=== PATIENT | female | born 1995 | race Caucasian/White ===

== ENCOUNTER 2020-04-04 15:26 | Inpatient (IN) | payer OTHER ==
[2020-04-04 18:15] VITALS: BMI 22.3
--- NOTE | 2020-04-04 19:34 | HP ---
COWS - Scale Resting Pulse: 0= [place] 80 or Below Sweatin=Flushed/Facial Moisture Restless Observation: 1= Difficult to Sit Still Pupil Size: 0= Normal to Room Light Bone or Joint Aches: 4=Acute Joint/Muscle Pain Runny Nose/ Eye Tearin= None GI Upset > 30mins: 2= Nausea/Diarrhea (diarrhea x 3) Tremor Observation: 2= Slight Tremor Visible Yawning Observation: 0= None Anxiety or Irritability: 4=Extreme Anxiety Goose Flesh Skin: 0=Smooth Skin COWS Score: 15 CIWA Score - Admission Criteria [facility] Guidelines: Admission for Medically Managed Detox: Requires at least one of the followin. CIWA greater than 12 2. Seizures within the past 24 hours 3. Delirium tremens within the past 24 hours 4. Hallucinations within the past 24 hours 5. Acute intervention needed for co occurring medical disorder 6. Acute intervention needed for co occurring psychiatric disorder 7. Severe withdrawal that cannot be handled at a lower level of care (continued vomiting, continued diarrhea, abnormal vital signs) requiring intravenous medication and/or fluids 8. Admission ROS [facility] Chief Complaint: Heroin withdrawal symptoms Allergies/Adverse Reactions: Allergies Allergy/AdvReac Type Severity Reaction Status Date / Time No Known Allergies Allergy Verified 04/04/20 19:03 History of Present Illness: 24 years old female with 1 year of heroin dependence is seeking admission to detox. This is her first admission to [facility]. He uses 10 bags of heroin daily. Exam Limitations: No Limitations - Ebola screening Have you traveled outside of the country in the last 21 days: No Have you had contact with anyone from an Ebola affected area: No Have you been sick,other than usual withdrawal symptoms: No Do you have a fever: No - Review of Systems Constitutional: Chills, Malaise, Night Sweats, Changes in sleep EENT: reports: No Symptoms Reported Respiratory: reports: No Symptoms reported Cardiac: reports: No Symptoms Reported GI: reports: Diarrhea, Nausea, Poor Appetite, Abdominal cramping : reports: No Symptoms Reported Musculoskeletal: reports: Back Pain Integumentary: reports: Dryness, Flushing Neuro: reports: Headache, Tremors Endocrine: reports: No Symptoms Reported Hematology: reports: No Symptoms Reported Psychiatric: reports: Agitated, Anxious Other Systems: Reviewed and Negative Patient History - Patient Medical History Hx Anemia: No Hx Asthma: No Hx Chronic Obstructive Pulmonary Disease (COPD): No Hx Cancer: No Hx Cardiac Disorders: No Hx Congestive Heart Failure: No Hx Hypertension: No Hx Hypercholesterolemia: No Hx Pacemaker: No HX Cerebrovascular Accident: No Hx Seizures: No Hx Diabetes: No Hx Gastrointestinal Disorders: No Hx Liver Disease: No Hx Genitourinary Disorders: No Hx Sexually Transmitted Disorders: No Hx Renal Disease (ESRD): No Hx Thyroid Disease: No Hx Human Immunodeficiency Virus (HIV): No (Negative 2019) Hx Hepatitis C: No Hx Depression: Yes Hx Suicide Attempt: No (Denies suicidal ideation at this time) Hx Bipolar Disorder: Yes Hx Schizophrenia: Yes Other Medical History: PSY HX: OCD, PTSD, Paranoia, Insomnia - Patient Surgical History Past Surgical History: No - PPD History Previous Implant?: Yes Documented Results: Negative w/o proof Implanted On Prior [facility] Admission?: No PPD to be Administered?: Yes - Reproductive History Patient is a Female of Child Bearing Age (11 -55 yrs old): Yes Last Menstrual Period: 02/28/20 - Smoking Cessation Smoking history: Current every day smoker Have you smoked in the past 12 months: Yes Aproximately how many cigarettes per day: 10 Hx Chewing Tobacco Use: No Initiated information on smoking cessation: Yes 'Breaking Loose' booklet given: 04/04/20 - Substance & Tx. History Hx Alcohol Use: No Hx Substance Use: Yes Substance Use Type: Heroin Hx Substance Use Treatment: No - Substances abused Heroin Substance route: Inhalation Frequency: Daily Amount used: 10 bags Age of first use: 23 Date of last use: 04/04/20 Admission Physical Exam BHS - Vital Signs Vital Signs: Vital Signs - 24 hr 04/04/20 18:13 Temperature 97.7 F Pulse Rate 75 Respiratory 18 Rate Blood Pressure 97/62 - Physical General Appearance: Yes: Moderate Distress, Tremorous, Irritable, Anxious HEENTM: Yes: Within Normal Limits Respiratory: Yes: Lungs Clear, Normal Breath Sounds, No Respiratory Distress Neck: Yes: Within Normal Limits Breast: Yes: Breast Exam Deferred Cardiology: Yes: Regular Rhythm, Regular Rate Abdominal: Yes: Normal Bowel Sounds, Soft Genitourinary: Yes: Within Normal Limits Back: Yes: Normal Inspection Musculoskeletal: Yes: Back pain, Muscle Pain, Other (bilateral leg pain) Extremities: Yes: Tremors Neurological: Yes: Within Normal Limits Integumentary: Yes: Within Normal Limits Lymphatic: Yes: Within Normal Limits - Diagnostic (1) Opioid dependence with withdrawal Current Visit: Yes Status: Acute (2) Nicotine dependence Current Visit: Yes Status: Chronic Qualifiers: Nicotine product type: cigarettes Substance use status: uncomplicated Qualified Code(s): F17.210 - Nicotine dependence, cigarettes, uncomplicated (3) Depression Current Visit: Yes Status: Chronic Qualifiers: Depression Type: unspecified Qualified Code(s): F32.9 - Major depressive disorder, single episode, unspecified (4) Bipolar 1 disorder Current Visit: Yes Status: Chronic (5) OCD (obsessive compulsive disorder) Current Visit: Yes Status: Chronic Qualifiers: Obsessive-compulsive disorder type: unspecified Qualified Code(s): F42.9 - Obsessive-compulsive disorder, unspecified (6) PTSD (post-traumatic stress disorder) Current Visit: Yes Status: Chronic (7) Insomnia Current Visit: Yes Status: Acute Qualifiers: Insomnia type: unspecified Qualified Code(s): G47.00 - Insomnia, unspecified (8) Paranoia Current Visit: Yes Status: Chronic Cleared for Admission [facility] - Detox or Rehab [facility] Level of Care: Medically Managed Detox Regimen/Protocol: Methadone Claeared for Rehab Admission: No Breathalyzer - Breathalyzer Breathalyzer: 0 Urine Drug Screen - Test Device Lot number: [id number] Expiration date: 02/12/22 - Control Is test valid?: Yes - Results Drug screen NEGATIVE: No Urine drug screen results: MOP-Opiates, MTD-Methadone, BZO-Benzodiazepines Inpatient Rehab Admission - Rehab Decision to Admit Inpatient rehab admission?: No
[2020-04-04] MEDS ORDERED: MAGNESIUM CITRATE 300 ML BOTTLE PO PRN (19:50)
[2020-04-04] MEDS ORDERED: ACETAMINOPHEN 325 MG TABLET (FP) PO PRN ×2 (19:50)
[2020-04-04] MEDS ORDERED: BISMUTH SUBSALICYLATE 524 MG/30 ML UD PO PRN (19:50)
[2020-04-04] MEDS ORDERED: cloNIDine HCL 0.1 MG TABLET PO PRN (19:50)
[2020-04-04] MEDS ORDERED: NICOTINE POLACRILEX 2 MG GUM BUC PRN (19:50)
[2020-04-04] MEDS ORDERED: MAGNESIUM HYDROX 2400MG/30ML ORAL SUSPENSION 30 ML CUP PO PRN (19:50)
[2020-04-04] MEDS ORDERED: MAG HYDROX/AL HYDROX/SIMETH 30 ML UNIT-DOSE CUP PO PRN (19:50)
[2020-04-04] MEDS ORDERED: MENTHOL/PHENOL 1 EACH UD MM PRN (19:50)
[2020-04-04] MEDS ORDERED: ONDANSETRON *ODT* 4 MG TABLET SL PRN (19:50)
[2020-04-04] MEDS ORDERED: METHADONE HCL 10 MG TABLET (FOR DETOX USE ONLY) PO ONE (20:30)
[2020-04-04] MEDS ORDERED: TUBERCULIN PPD 5 TU/0.1ML VIAL ID ONE (20:56)
[2020-04-04] MEDS: THIAMINE HCL 100 MG TABLET (FP) PO SCH (22:53)
[2020-04-04] MEDS: MELATONIN 5 MG TABLETS PO SCH (22:53)
[2020-04-05] MEDS: IBUPROFEN 400 MG TABLET (FP) PO PRN (05:45)
[2020-04-05] MEDS: hydrOXYzine PAMOATE 25 MG CAPSULE (FP) PO PRN ×3 (05:46→22:08)
[2020-04-05] MEDS ORDERED: METHADONE HCL 10 MG TABLET (FOR DETOX USE ONLY) ONE (09:03)
[2020-04-05] MEDS ORDERED: METHADONE HCL 5 MG TABLET (FOR DETOX USE ONLY) ONE (09:04)
--- NOTE | 2020-04-05 09:12 | PN ---
BHS COWS - Scale Resting Pulse: 0= [place] 80 or Below Sweatin= No chills or Flushing Restless Observation: 0= Sits Still Pupil Size: 1= Pupils >than Normal Bone or Joint Aches: 2= Severe Diffuse Aches Runny Nose/ Eye Tearin= Nasal Congestion GI Upset > 30mins: 2= Nausea/Diarrhea Tremor Observation of Outstretched Hands: 2= Slight Tremor Visible Yawning Observation: 1= 1-2x During Session Anxiety or Irritability: 2=Irritable/Anxious Goose Flesh Skin: 0=Smooth Skin COWS Score: 11 [facility] Progress Note (SOAP) Subjective: alert,irritable,anxious,aching pain,interrupted sleep Objective: 04/05/20 17:34 t97.1,p71,r18,bp 102/71,pulse ox 97% Assessment: 04/05/20 17:35 withdrawal symptom Plan: continue detox methadone regimen
[2020-04-05] MEDS ORDERED: METHADONE (DETOX) 20 MG, METHADONE (DETOX) 5 MG PO ONE (10:00)
[2020-04-05] MEDS: NICOTINE 14 MG/24 HOURS TOPICAL PATCH TD SCH (10:06)
[2020-04-05] MEDS: PRENATAL VITAMINS W/ FOLIC ACID TABLET (FP) PO SCH (10:08)
[2020-04-05 10:14] LABS: HEMOGLOBIN 11.7 GM/dL (10.7-15.3); MCH 28.6 pg (25.7-33.7); MCHC 33.5 g/dl (32.0-36.0); MEAN CELL VOLUME 85.1 fl (80-96); MEAN PLT VOLUME 8.4 fl (7.5-11.1); PLATELET COUNT 194 K/MM3 (134-434); RBC 4.11 M/mm3 (3.60-5.2); RDW 13.5 % (11.6-15.6); WHITE BLOOD COUNT 5.3 K/mm3 (4.0-10.0)
[2020-04-05 10:15] LABS: ALBUMIN 3.3 g/dl (3.4-5.0); BILIRUBIN,TOTAL 0.8 mg/dL (0.2-1); BLOOD UREA NITROGEN 8.5 mg/dL (7-18); CALCIUM 8.6 mg/dL (8.5-10.1); CREATININE 0.6 mg/dL (0.55-1.3); POTASSIUM 3.6 mmol/L (3.5-5.1)
--- NOTE | 2020-04-05 10:31 | EKG ---
Test Reason : Blood Pressure : / mmHG Vent. Rate : 061 BPM Atrial Rate : 061 BPM P-R Int : 146 ms QRS Dur : 086 ms QT Int : 410 ms P-R-T Axes : 055 069 054 degrees QTc Int : 412 ms NORMAL SINUS RHYTHM WITH SINUS ARRHYTHMIA NORMAL ECG NO PREVIOUS ECGS AVAILABLE Confirmed by LORETA WALDRON MD ([id number]) on 04/05/2020 10:30:48 AM Referred By: Confirmed By:LORETA WALDRON MD
--- NOTE | 2020-04-05 11:53 | CONSULT ---
[facility] Psychiatric Consult - Data Date of interview: 04/05/20 Admission source: [facility] Identifying data: First visit to [facility] and admission to [address] [place] [address] for this 24 y/o female self-referred for detoxification treatment. VANESSA issues : heroin, benzodiazepine (xanax), nicotine. Patient is single, mother of one, homeless (lives in [facility]), unemployed and supported on food stamps. Substance Abuse History: Discussed with the patient. VANESSA profile as follows : Smoking history: Current every day smoker. Have you smoked in the past 12 months: Yes. Approximately how many cigarettes per day: 10. Hx Chewing Tobacco Use: No. Initiated information on smoking cessation: Yes. 'Breaking Loose' booklet given: 04/04/20. - Substance & Tx. History. Hx Alcohol Use: No. Hx Substance Use: Yes. Substance Use Type: Heroin. Hx Substance Use Treatment: No. - Substances abused. Heroin. Substance route: Inhalation. Frequency: Daily. Amount used: 10 bags. Age of first use: 23. Date of last use: 04/04/20. History of multiple VANESSA treatment failures. Medical History: Patient endorses good general health. Psychiatric History: Patient is a marginally cooperative and irritable historian. Ms Clemens endorses a long standing (since age 12) history of contacts with mental health providers on an outpatient basis. No reported history of psychiatric hospitalizations. Patient states that she has been diagnosed with OCD, bipolar disorder, anxiety disorder and PTSD. Has not taken prescribed psychotropic medications for years (self-report). No contact with psychiatric OPD care providers. Patient has no recollection of the names of her past medications. She denies history of suicide attempts. Physical/Sexual Abuse/Trauma History: Patient declines to provide information. Additional Comment: Urine drug screen results: MOP-Opiates, MTD-Methadone, BZO- Benzodiazepines. Noted. Mental Status Exam - Mental Status Exam Alert and Oriented to: Time, Place, Person Cognitive Function: Good Patient Appearance: Unkempt, Disheveled (tattoos all over face : diabla painted over right eyebrow + teardrop at the corner of right eye + three x seen under the left eye + multiple figures drawn on upper extremities) Mood: Nervous, Withdrawn, Irritable Affect: Mood Congruent, Constricted Patient Behavior: Fatigued, Guarded Speech Pattern: Clear, Appropriate Voice Loudness: Normal Thought Process: Intact, Goal Oriented Thought Disorder: Not Present Hallucinations: Denies Suicidal Ideation: Denies Homicidal Ideation: Denies Insight/Judgement: Poor Sleep: Fair Appetite: Good Gait/Station: Other (not observed out of bed) Psychiatric Findings - Problem List ([place] 1, 2,3) (1) Opioid dependence with withdrawal Current Visit: Yes Status: Acute (2) Nicotine dependence Current Visit: Yes Status: Chronic Qualifiers: Nicotine product type: cigarettes Substance use status: uncomplicated Qualified Code(s): F17.210 - Nicotine dependence, cigarettes, uncomplicated (3) Substance induced mood disorder Current Visit: Yes Status: Chronic (4) Insomnia Current Visit: Yes Status: Chronic Qualifiers: Insomnia type: unspecified Qualified Code(s): G47.00 - Insomnia, unspecified - Initial Treatment Plan Initial Treatment Plan: Psychoeducation. Sleep hygiene. Support. MAT interventions (opioid agonist therapy) discussed with the patient. Detoxification in progress. Ms Clemens declines to consent for any medication other than drugs necessary for detoxification purposes. Observation.
[2020-04-05] MEDS: METHOCARBAMOL 500 MG TABLET PO PRN (17:31)
[2020-04-05] MEDS: MELATONIN 5 MG TABLETS PO SCH (22:08)
[2020-04-05] MEDS: THIAMINE HCL 100 MG TABLET (FP) PO SCH (22:08)
[2020-04-06] MEDS ORDERED: METHADONE HCL 10 MG TABLET (FOR DETOX USE ONLY) PO ONE (10:00)
[2020-04-06] MEDS: PRENATAL VITAMINS W/ FOLIC ACID TABLET (FP) PO SCH (10:24)
[2020-04-06] MEDS: NICOTINE 14 MG/24 HOURS TOPICAL PATCH TD SCH (10:24)
[2020-04-06] MEDS: METHOCARBAMOL 500 MG TABLET PO PRN (10:25)
--- NOTE | 2020-04-06 12:36 | PN ---
BHS COWS - Scale Resting Pulse: 0= [place] 80 or Below Sweatin= Chills/Flushing Restless Observation: 1= Difficult to Sit Still Pupil Size: 0= Normal to Room Light Bone or Joint Aches: 2= Severe Diffuse Aches Runny Nose/ Eye Tearin= None GI Upset > 30mins: 0= None Tremor Observation of Outstretched Hands: 0= None Yawning Observation: 2= >3x During Session Anxiety or Irritability: 2=Irritable/Anxious Goose Flesh Skin: 0=Smooth Skin COWS Score: 8 [facility] Progress Note (SOAP) Subjective: c/o anxiety, irritability, headache, and muscle aches. Objective: 04/06/20 12:35 Vital Signs 04/06/20 04/06/20 06:45 08:34 Temperature 97.1 F L 97.1 F L Pulse Rate 62 65 Respiratory 16 16 Rate Blood Pressure 101/60 108/79 O2 Sat by Pulse 99 Oximetry (%) Assessment: 04/06/20 12:37 AOX3, in no acute respiratory distress. Full ROM, ambulating in the unit. Withdrawal symptoms. Plan: continue detox.
[2020-04-06] MEDS: hydrOXYzine PAMOATE 25 MG CAPSULE (FP) PO PRN (17:59)
[2020-04-06] MEDS: THIAMINE HCL 100 MG TABLET (FP) PO SCH (22:42)
[2020-04-06] MEDS: MELATONIN 5 MG TABLETS PO SCH (22:42)
[2020-04-07] MEDS: hydrOXYzine PAMOATE 25 MG CAPSULE (FP) PO PRN ×2 (07:07→14:59)
[2020-04-07] MEDS: METHOCARBAMOL 500 MG TABLET PO PRN ×2 (07:08→14:59)
[2020-04-07] MEDS ORDERED: METHADONE HCL 10 MG TABLET (FOR DETOX USE ONLY) ONE (09:13)
[2020-04-07] MEDS ORDERED: METHADONE HCL 5 MG TABLET (FOR DETOX USE ONLY) ONE (09:14)
[2020-04-07] MEDS: IBUPROFEN 400 MG TABLET (FP) PO PRN (09:43)
[2020-04-07] MEDS: PRENATAL VITAMINS W/ FOLIC ACID TABLET (FP) PO SCH (09:44)
[2020-04-07] MEDS: NICOTINE 14 MG/24 HOURS TOPICAL PATCH TD SCH (09:44)
[2020-04-07] MEDS ORDERED: METHADONE (DETOX) 10 MG, METHADONE (DETOX) 5 MG PO ONE (10:00)
--- NOTE | 2020-04-07 10:13 | PN ---
BHS COWS - Scale Resting Pulse: 0= [place] 80 or Below Sweatin= No chills or Flushing Restless Observation: 0= Sits Still Pupil Size: 1= Pupils >than Normal Bone or Joint Aches: 1= Mild Discomfort Runny Nose/ Eye Tearin= Nasal Congestion GI Upset > 30mins: 1= Stomach Cramp Tremor Observation of Outstretched Hands: 1= Tremor [place], Not Seen Yawning Observation: 0= None Anxiety or Irritability: 1=Feels Anxious/Irritable Goose Flesh Skin: 0=Smooth Skin COWS Score: 6 [facility] Progress Note (SOAP) Subjective: 24 years old female was admitted on 04/04/20 for opiate withdrawal sx management treating with methadone detox regiment right jugalodigastric enlarged inflamed tenderness speech clearly "happened two years ago" lymphadenitis amoxicillin 500mg po tid x 5 days Objective: 04/07/20 10:15 Vital Signs - 24 hr 04/06/20 04/06/20 04/06/20 12:32 16:43 20:53 Temperature 97.3 F L 97.6 F 97.3 F L Pulse Rate 64 88 72 Respiratory 18 20 18 Rate Blood Pressure 99/69 107/74 101/67 O2 Sat by Pulse 100 100 Oximetry (%) 04/07/20 04/07/20 07:02 09:33 Temperature 97.8 F 97.3 F L Pulse Rate 88 75 Respiratory 18 18 Rate Blood Pressure 94/64 106/59 L O2 Sat by Pulse 98 Oximetry (%) Laboratory Tests 04/04/20 04/05/20 04/05/20 18:25 00:05 08:00 WBC RBC Hgb Hct MCV MCH MCHC RDW Plt Count MPV Sodium Potassium Chloride Carbon Dioxide Anion Gap BUN Creatinine Est GFR (CKD-EPI)AfAm Est GFR (CKD-EPI)NonAf Random Glucose Calcium Total Bilirubin AST ALT Alkaline Phosphatase Total Protein Albumin POC Urine HCG, Qual Negative Syphilis Serology Reactive A* RPR Titer COVID-19 (PATRICIA) Not detected 04/05/20 04/05/20 04/05/20 08:00 08:00 08:00 WBC 5.3 RBC 4.11 Hgb 11.7 Hct 35.0 MCV 85.1 MCH 28.6 MCHC 33.5 RDW 13.5 Plt Count 194 MPV 8.4 Sodium 138 Potassium 3.6 Chloride 104 Carbon Dioxide 28 Anion Gap 7 L BUN 8.5 Creatinine 0.6 Est GFR (CKD-EPI)AfAm 148.90 Est GFR (CKD-EPI)NonAf 128.48 Random Glucose 67 L Calcium 8.6 Total Bilirubin 0.8 AST 9 L ALT 11 L Alkaline Phosphatase 87 Total Protein 6.0 L Albumin 3.3 L POC Urine HCG, Qual Syphilis Serology RPR Titer Reactive 1:1 H COVID-19 (PATRICIA) 04/07/20 10:16 history of syphilis treated Assessment: 04/07/20 10:16 opiate withdrawal 04/07/20 10:17 lymphdenitis Plan: methadone regiment amoxicillin 500 mg po tid x 5 days
[2020-04-07] MEDS: AMOXICILLIN 500 MG CAPSULE (FP) PO SCH ×2 (13:32→21:26)
[2020-04-07] MEDS: THIAMINE HCL 100 MG TABLET (FP) PO SCH (21:26)
[2020-04-07] MEDS: MELATONIN 5 MG TABLETS PO SCH (21:26)
[2020-04-08] MEDS: hydrOXYzine PAMOATE 25 MG CAPSULE (FP) PO PRN ×3 (05:50→18:13)
[2020-04-08] MEDS: METHOCARBAMOL 500 MG TABLET PO PRN ×2 (05:50→18:13)
[2020-04-08] MEDS: AMOXICILLIN 500 MG CAPSULE (FP) PO SCH ×3 (05:50→22:30)
[2020-04-08] MEDS: NICOTINE 14 MG/24 HOURS TOPICAL PATCH TD SCH (09:51)
[2020-04-08] MEDS: PRENATAL VITAMINS W/ FOLIC ACID TABLET (FP) PO SCH (09:51)
[2020-04-08] MEDS ORDERED: METHADONE HCL 10 MG TABLET (FOR DETOX USE ONLY) PO ONE (10:00)
--- NOTE | 2020-04-08 15:04 | PN ---
BHS COWS - Scale Resting Pulse: 0= [place] 80 or Below Sweatin= No chills or Flushing Restless Observation: 0= Sits Still Pupil Size: 0= Normal to Room Light Bone or Joint Aches: 1= Mild Discomfort Runny Nose/ Eye Tearin= None GI Upset > 30mins: 1= Stomach Cramp Tremor Observation of Outstretched Hands: 1= Tremor [place], Not Seen Yawning Observation: 0= None Anxiety or Irritability: 1=Feels Anxious/Irritable Goose Flesh Skin: 0=Smooth Skin COWS Score: 4 [facility] Progress Note (SOAP) Subjective: 24 years old female was admitted on 04/04/20 for opiate withdrawal sx management treating with methadone detox regiment feels ok today less general body aches encourage to pear picker narcan from pharmacy upon discharge ate breakfast and lunch in room tolerated ensure well Objective: 04/08/20 15:06 Vital Signs - 24 hr 04/07/20 04/07/20 04/08/20 16:38 21:00 06:24 Temperature 97.5 F L 97.7 F 96.8 F L Pulse Rate 62 98 H 75 Respiratory 18 18 18 Rate Blood Pressure 109/74 108/72 119/69 O2 Sat by Pulse 100 95 96 Oximetry (%) 04/08/20 04/08/20 09:11 13:34 Temperature 97.5 F L 97.8 F Pulse Rate 75 69 Respiratory 18 16 Rate Blood Pressure 114/67 108/63 O2 Sat by Pulse Oximetry (%) Laboratory Tests 04/04/20 04/05/20 04/05/20 18:25 00:05 08:00 WBC RBC Hgb Hct MCV MCH MCHC RDW Plt Count MPV Sodium Potassium Chloride Carbon Dioxide Anion Gap BUN Creatinine Est GFR (CKD-EPI)AfAm Est GFR (CKD-EPI)NonAf Random Glucose Calcium Total Bilirubin AST ALT Alkaline Phosphatase Total Protein Albumin POC Urine HCG, Qual Negative Syphilis Serology Reactive A* RPR Titer COVID-19 (PATRICIA) Not detected 04/05/20 04/05/20 04/05/20 08:00 08:00 08:00 WBC 5.3 RBC 4.11 Hgb 11.7 Hct 35.0 MCV 85.1 MCH 28.6 MCHC 33.5 RDW 13.5 Plt Count 194 MPV 8.4 Sodium 138 Potassium 3.6 Chloride 104 Carbon Dioxide 28 Anion Gap 7 L BUN 8.5 Creatinine 0.6 Est GFR (CKD-EPI)AfAm 148.90 Est GFR (CKD-EPI)NonAf 128.48 Random Glucose 67 L Calcium 8.6 Total Bilirubin 0.8 AST 9 L ALT 11 L Alkaline Phosphatase 87 Total Protein 6.0 L Albumin 3.3 L POC Urine HCG, Qual Syphilis Serology RPR Titer Reactive 1:1 H COVID-19 (PATRICIA) lab noted syphilis contacted treated Assessment: 04/08/20 15:07 opiate withdrawal Plan: methadone regiment
[2020-04-08] MEDS: MELATONIN 5 MG TABLETS PO SCH (22:30)
[2020-04-08] MEDS: THIAMINE HCL 100 MG TABLET (FP) PO SCH (22:30)
[2020-04-09] MEDS: AMOXICILLIN 500 MG CAPSULE (FP) PO SCH (05:58)
[2020-04-09] MEDS ORDERED: METHADONE HCL 5 MG TABLET (FOR DETOX USE ONLY) PO ONE (06:00)
[2020-04-09 09:06] VITALS: BP 102/60; PULSE 84; TEMP 98
[2020-04-09] MEDS: PRENATAL VITAMINS W/ FOLIC ACID TABLET (FP) PO SCH (10:43)
[2020-04-09] MEDS: NICOTINE 14 MG/24 HOURS TOPICAL PATCH TD SCH (10:43)
[2020-04-09] MEDS: hydrOXYzine PAMOATE 25 MG CAPSULE (FP) PO PRN (10:45)
--- NOTE | 2020-04-09 10:52 | DS ---
[facility] Detox Discharge Summary Admission Date: 04/04/20 Discharge Date: 04/09/20 - History Present History: Opioid Dependence Additional Comments: alert,oriented x 3 ambulation on the unit lung clear on auscultation bilaterally no abdominal pain no edema of legs detox completed,no withdrawal symptom stable for discharge today follow up with after care program ,[facility] arrangement total time spending on discharge 35 minutes on amoxicillin 500 mgs po tid for cervial lymhadenitis for 5 more days Pertinent Past History: bipolar disorder history of syphilis treated - Physical Exam Results Vital Signs: Vital Signs Temperature 98 F 04/09/20 09:05 Pulse Rate 84 04/09/20 09:05 Respiratory Rate 18 04/09/20 09:05 Blood Pressure 102/60 04/09/20 09:05 O2 Sat by Pulse Oximetry (%) 97 04/09/20 09:05 Pertinent Admission Physical Exam Findings: withdrawal signs and symptom Laboratory Last Values WBC 5.3 K/mm3 (4.0-10.0) 04/05/20 08:00 RBC 4.11 M/mm3 (3.60-5.2) 04/05/20 08:00 Hgb 11.7 GM/dL (10.7-15.3) 04/05/20 08:00 Hct 35.0 % (32.4-45.2) 04/05/20 08:00 MCV 85.1 fl (80-96) 04/05/20 08:00 MCH 28.6 pg (25.7-33.7) 04/05/20 08:00 MCHC 33.5 g/dl (32.0-36.0) 04/05/20 08:00 RDW 13.5 % (11.6-15.6) 04/05/20 08:00 Plt Count 194 K/MM3 (134-434) 04/05/20 08:00 MPV 8.4 fl (7.5-11.1) 04/05/20 08:00 Sodium 138 mmol/L (136-145) 04/05/20 08:00 Potassium 3.6 mmol/L (3.5-5.1) 04/05/20 08:00 Chloride 104 mmol/L (98-107) 04/05/20 08:00 Carbon Dioxide 28 mmol/L (21-32) 04/05/20 08:00 Anion Gap 7 MMOL/L (8-16) L 04/05/20 08:00 BUN 8.5 mg/dL (7-18) 04/05/20 08:00 Creatinine 0.6 mg/dL (0.55-1.3) 04/05/20 08:00 Est GFR (CKD-EPI)AfAm 148.90 04/05/20 08:00 Est GFR (CKD-EPI)NonAf 128.48 04/05/20 08:00 Random Glucose 67 mg/dL (74-106) L 04/05/20 08:00 Calcium 8.6 mg/dL (8.5-10.1) 04/05/20 08:00 Total Bilirubin 0.8 mg/dL (0.2-1) 04/05/20 08:00 AST 9 U/L (15-37) L 04/05/20 08:00 ALT 11 U/L (13-61) L 04/05/20 08:00 Alkaline Phosphatase 87 U/L (45-117) 04/05/20 08:00 Total Protein 6.0 g/dl (6.4-8.2) L 04/05/20 08:00 Albumin 3.3 g/dl (3.4-5.0) L 04/05/20 08:00 POC Urine HCG, Qual Negative 04/04/20 18:25 Syphilis Serology Reactive (NONREACTIVE) A* 04/05/20 08:00 RPR Titer Reactive 1:1 (NONREACTIVE) H 04/05/20 08:00 COVID-19 (PATRICIA) Not detected (Not Detected) 04/05/20 00:05 history of syphilis treated Vital Signs Temperature 98 F 04/09/20 09:05 Pulse Rate 84 04/09/20 09:05 Respiratory Rate 18 04/09/20 09:05 Blood Pressure 102/60 04/09/20 09:05 O2 Sat by Pulse Oximetry (%) 97 04/09/20 09:05 - Treatment Hospital Course: Detox Protocol Followed, Detoxed Safely, Responded well, Rehab Referral Accepted Patient has Accepted a Rehab Referral to: [facility] - Medication Discharge Medications: Ambulatory Orders Naloxone HCl [Narcan] 4 mg NS ASDIR PRN #1 spray 04/08/20 Naloxone HCl [Narcan] 4 mg NS ASDIR PRN #1 spray 04/08/20 Amoxicillin - [Amoxicillin 500mg Capsule -] 500 mg PO TID 5 Days #15 capsule 04/09/20 - Diagnosis (1) Opioid dependence with withdrawal Status: Acute (2) Syphilis contact, treated Status: Acute (3) Depression Status: Chronic Qualifiers: Depression Type: unspecified Qualified Code(s): F32.9 - Major depressive disorder, single episode, unspecified (4) Nicotine dependence Status: Chronic Qualifiers: Nicotine product type: cigarettes Substance use status: uncomplicated Qualified Code(s): F17.210 - Nicotine dependence, cigarettes, uncomplicated (5) OCD (obsessive compulsive disorder) Status: Chronic Qualifiers: Obsessive-compulsive disorder type: unspecified Qualified Code(s): F42.9 - Obsessive-compulsive disorder, unspecified (6) PTSD (post-traumatic stress disorder) Status: Chronic (7) Cervical lymphadenitis Status: Acute - AMA Did Patient Leave Against Medical Advice: No
--- NOTE | 2020-04-09 10:52 | PN ---
BHS COWS - Scale Resting Pulse: 1= [place] 81-100 Sweatin= No chills or Flushing Restless Observation: 0= Sits Still Pupil Size: 0= Normal to Room Light Bone or Joint Aches: 0= None Runny Nose/ Eye Tearin= None GI Upset > 30mins: 0= None Tremor Observation of Outstretched Hands: 0= None Yawning Observation: 0= None Anxiety or Irritability: 0= None Goose Flesh Skin: 0=Smooth Skin COWS Score: 1 [facility] Progress Note (SOAP) Subjective: alert,no complaint Objective: 04/09/20 12:42 Vital Signs Temperature 98 F 04/09/20 09:05 Pulse Rate 84 04/09/20 09:05 Respiratory Rate 18 04/09/20 09:05 Blood Pressure 102/60 04/09/20 09:05 O2 Sat by Pulse Oximetry (%) 97 04/09/20 09:05 Assessment: 04/09/20 12:43 detox completed,no withdrawal symptom Plan: stable for discharge to rehab today
== END 2020-04-09 11:30 | disposition other institution (70) | DRG 773 ==
LOC: YASAS 15:26 → Y3N 19:26
PROVIDERS: ADMIT Allergy & Immunology; ATTEND Allergy & Immunology
PROC: HZ2ZZZZ Detoxification Services for Substance Abuse Treatment (ICD-10-PCS; principal; 2020-04-04)
DX: F11.23 Opioid dependence with withdrawal (principal); F13.20 Sedative, hypnotic or anxiolytic dependence, uncomplicated; F17.210 Nicotine dependence, cigarettes, uncomplicated; F31.9 Bipolar disorder, unspecified; F22 Delusional disorders; F19.24 Other psychoactive substance dependence with psychoactive substance-induced mood disorder; F41.9 Anxiety disorder, unspecified; F42.9 Obsessive-compulsive disorder, unspecified; F43.10 Post-traumatic stress disorder, unspecified; G47.00 Insomnia, unspecified; I88.8 Other nonspecific lymphadenitis; Z86.19 Personal history of other infectious and parasitic diseases; Z56.0 Unemployment, unspecified; Z59.0 Homelessness
CPT/HCPCS: 36415; 80053; 81025; 85027; 86593; 86780; 93005; 93010; U0003